=== PATIENT | male | born 1980 | race Caucasian/White ===

== ENCOUNTER → 2017-03-18 | Outpatient (CLI) | payer BC | LOC: MHCPAIN 12:44 | DX: G89.29 Other chronic pain (principal); M47.27 Other spondylosis with radiculopathy, lumbosacral region; M53.3 Sacrococcygeal disorders, not elsewhere classified; M96.1 Postlaminectomy syndrome, not elsewhere classified; F17.200 Nicotine dependence, unspecified, uncomplicated | CPT/HCPCS: G0463 ==

== ENCOUNTER 2017-04-15 13:45 | Outpatient (RCR) | payer BC | END 2017-05-21 10:52 | disposition home or self-care (01) | LOC: WSPT 13:45 | DX: M47.27 Other spondylosis with radiculopathy, lumbosacral region (principal); M96.1 Postlaminectomy syndrome, not elsewhere classified; M53.3 Sacrococcygeal disorders, not elsewhere classified ==

== ENCOUNTER → 2017-10-31 | Outpatient (CLI) | payer BC | LOC: ZCOL.LAB 13:28 | DX: Z22.322 Carrier or suspected carrier of Methicillin resistant Staphylococcus aureus (principal) ==

== ENCOUNTER → 2017-12-30 | Outpatient (CLI) | payer BC | LOC: COL.RAD 11:45 | DX: M99.73 Connective tissue and disc stenosis of intervertebral foramina of lumbar region (principal); M51.27 Other intervertebral disc displacement, lumbosacral region; L92.8 Other granulomatous disorders of the skin and subcutaneous tissue; Z98.890 Other specified postprocedural states | CPT/HCPCS: A9585 ==

== ENCOUNTER 2018-02-11 12:32 | Day surgery (SDC) | payer BC ==
[~2018-02-11] VITALS: Ht 175.3 cm; Wt 76.4 kg
[2018-02-11] MEDS ORDERED: MULTIPLE VITAMI1 TA5 PO (12:48)
[2018-02-11] MEDS ORDERED: OMEGA-3 1000 MG1 CAP PO (12:48)
[2018-02-11] MEDS ORDERED: PERCOCET 325 MG1 TA3 PO (12:48)
[2018-02-11] MEDS ORDERED: TURMERIC500 MG PO (12:49)
[2018-02-11 12:53] VITALS: BP 121/83; PULSE 65; TEMP 97.9
[2018-02-11] MEDS ORDERED: PRILOSEC 20MG20 MG PO (14:07)
[2018-02-11 14:15] VITALS: BP 124/93; PULSE 70; TEMP 97.3
[2018-02-11 14:30] VITALS: BP 122/84; PULSE 62
[2018-02-11 14:45] VITALS: BP 123/83; PULSE 68
== END 2018-02-11 14:55 | disposition home or self-care (01) ==
LOC: SDCO 12:32
DX: K21.0 Gastro-esophageal reflux disease with esophagitis (principal); K29.30 Chronic superficial gastritis without bleeding; F17.210 Nicotine dependence, cigarettes, uncomplicated; K21.9 Gastro-esophageal reflux disease without esophagitis; G89.29 Other chronic pain
CPT/HCPCS: J2704; J7030

== ENCOUNTER → 2018-03-27 | Outpatient (CLI) | payer BC ==
[~2018-03-27] MED LIST: MULTIPLE VITAMI1 TA5 PO; OMEGA-3 1000 MG1 CAP PO; PERCOCET 325 MG1 TA3 PO; PRILOSEC 20MG20 MG PO; TURMERIC500 MG PO
== END ==
LOC: COL.RAD 12:52
DX: K63.89 Other specified diseases of intestine (principal)
CPT/HCPCS: Q9967

== ENCOUNTER 2019-04-29 08:13 | Emergency (ER) | payer BC ==
[~2019-04-29] VITALS: Ht 172.7 cm; Wt 72.7 kg
[2019-04-29 08:40] VITALS: BP 150/73; PULSE 92; TEMP 98.7
[2019-04-29] MEDS ORDERED: LIDODERM 5% PATC1 EA TP (09:38)
[2019-04-29] MEDS ORDERED: FLEXERIL 1010 MG/TAB PO (09:38)
== END 2019-04-29 09:50 | disposition home or self-care (01) ==
LOC: COL.ER 08:13
DX: S29.011A Strain of muscle and tendon of front wall of thorax, initial encounter (principal); S20.221A Contusion of right back wall of thorax, initial encounter; F17.210 Nicotine dependence, cigarettes, uncomplicated; W10.9XXA Fall (on) (from) unspecified stairs and steps, initial encounter
CPT/HCPCS: J1885

== ENCOUNTER 2019-08-16 14:46 | Emergency (ER) | payer BC ==
[~2019-08-16] VITALS: Ht 175.3 cm; Wt 72.7 kg
[~2019-08-16 14:46] MED LIST changes: +FLEXERIL 1010 MG/TAB PO; +LIDODERM 5% PATC1 EA TP
[2019-08-16 14:48] VITALS: TEMP 98.6
[2019-08-16 15:32] LABS: BASO % 0.5 % (0.0-2.0); EOS % 0.9 % (0-4.0); GRAN # 2.8 (1.4-6.5); GRAN % 63.8 % (42.2-75.2); HEMATOCRIT 44.2 % (42.0-52.0); HEMOGLOBIN 15.1 g/dl (13.5-18.0); LYMPH # 1.1 (1.2-3.4); LYMPH % 24.7 % (20.0-51.0); MEAN CELL VOLUME 91 fl (80.0-100.0); MEAN CORPUSCULAR HEMOGLOBIN 31 pg (27.0-31.0); MEAN CORPUSCULAR HGB CONC 34 g/dl (33.0-37.0); MONO # 0.4 (0.1-0.6); MONO % 9.6 % (1.7-9.3); PLATELET COUNT 217 K/mm3 (130-400); RED BLOOD COUNT 4.85 M/mm3 (4.20-5.60); REDCELL DISTRIBUTION WIDTH-CV 12.7 % (11.5-14.5)
[2019-08-16 15:43] LABS: ALBUMIN 4.6 gm/dL (3.5-5.0); BILIRUBIN,TOTAL 0.6 mg/dL (0.0-1.0); CALCIUM 9.3 mg/dL (8.4-10.2); CREATININE, serum 0.86 (0.66-1.25); POTASSIUM 3.9 mmol/L (3.4-5.0); TOTAL PROTEIN 7.9 gm/dL (6.4-8.2)
[2019-08-16] MEDS ORDERED: NORCO 325 MG-51 TAB PO (16:38)
[2019-08-16] MEDS ORDERED: MEDROL 4MG DOSPA4 MG PO (16:38)
[2019-08-16] MEDS ORDERED: SKELAXIN 800MG800 MG PO (16:38)
[2019-08-16 16:40] VITALS: BP 124/81; PULSE 61
== END 2019-08-16 16:55 | disposition home or self-care (01) ==
LOC: COL.ER 14:46
PROVIDERS: Physician Assistant
DX: R07.81 Pleurodynia (principal); R05 Cough; R10.13 Epigastric pain; K21.9 Gastro-esophageal reflux disease without esophagitis; F17.210 Nicotine dependence, cigarettes, uncomplicated
CPT/HCPCS: J2270; J7030

== ENCOUNTER 2019-12-15 11:19 | Emergency (ER) | payer BC, MEDICAID ==
[~2019-12-15] VITALS: Ht 175.3 cm; Wt 77.3 kg
[~2019-12-15 11:19] MED LIST changes: +MEDROL 4MG DOSPA4 MG PO; +NORCO 325 MG-51 TAB PO; +SKELAXIN 800MG800 MG PO
[2019-12-15 11:29] VITALS: TEMP 99.3
[2019-12-15 12:46] LABS: BASO % 0.6 % (0.0-2.0); GRAN # 1.4 (1.4-6.5); GRAN % 45.9 % (42.2-75.2); HEMATOCRIT 43.9 % (42.0-52.0); HEMOGLOBIN 15.4 g/dl (13.5-18.0); LYMPH # 1.3 (1.2-3.4); LYMPH % 40.6 % (20.0-51.0); MEAN CELL VOLUME 90 fl (80.0-100.0); MEAN CORPUSCULAR HEMOGLOBIN 32 pg (27.0-31.0); MEAN CORPUSCULAR HGB CONC 35 g/dl (33.0-37.0); MEAN PLATELET VOLUME 10.1 fl (7.4-10.4); MONO # 0.4 (0.1-0.6); MONO % 11.6 % (1.7-9.3); PLATELET COUNT 224 K/mm3 (130-400); RED BLOOD COUNT 4.89 M/mm3 (4.20-5.60); REDCELL DISTRIBUTION WIDTH-CV 12.2 % (11.5-14.5)
[2019-12-15 12:53] LABS: PROTHROMBIN TIME 11.1 SECONDS (9.7-12.8)
[2019-12-15 13:01] LABS: ALANINE AMINOTRANSFERASE 44 U/L (4-49); ALBUMIN 5.1 gm/dL (3.5-5.0); ALKALINE PHOSPHATASE 75 U/L (50-136); ANION GAP 15 mmol/L (7-16); AST,SGOT 53 U/L (15-37); BLOOD UREA NITROGEN 7 mg/dL (9-20); CALCIUM 9.9 mg/dL (8.4-10.2); CARBON DIOXIDE 22 mmol/L (22-30); CHLORIDE 101 mmol/L (98-107); CREATININE, serum 0.84 (0.66-1.25); GLUCOSE 86 mg/dL (74-106); LIPASE 68 U/L (23-300); SODIUM 137 mmol/L (137-145); TOTAL PROTEIN 8.6 gm/dL (6.4-8.2)
[2019-12-15 13:10] LABS: TROPONIN-I < 0.012 ng/mL (0.000-0.035)
[2019-12-15 13:11] LABS: C-REACTIVE PROTEIN < 0.5 mg/dL (0.0-0.9)
[2019-12-15 15:25] VITALS: BP 124/87; PULSE 81
== END 2019-12-15 15:25 | disposition home or self-care (01) ==
LOC: COL.ER 11:19
PROVIDERS: Emergency Medicine
DX: F15.90 Other stimulant use, unspecified, uncomplicated (principal); Z20.828 Contact with and (suspected) exposure to other viral communicable diseases
CPT/HCPCS: J1630; J2060; J7030

== ENCOUNTER 2020-03-16 15:36 | Emergency (ER) | payer BC, MEDICAID ==
[~2020-03-16] VITALS: Ht 175.3 cm; Wt 77.3 kg
[2020-03-16 15:43] VITALS: BP 139/92; PULSE 97; TEMP 98.9
== END 2020-03-16 17:16 | disposition left against medical advice (07) ==
LOC: COL.ER 15:36
DX: B34.9 Viral infection, unspecified (principal); F17.200 Nicotine dependence, unspecified, uncomplicated; Z20.828 Contact with and (suspected) exposure to other viral communicable diseases

== ENCOUNTER → 2020-04-11 | Outpatient (CLI) | payer BC, MEDICAID | LOC: COL.RAD 11:51 | DX: M51.27 Other intervertebral disc displacement, lumbosacral region (principal); M48.07 Spinal stenosis, lumbosacral region; Z98.890 Other specified postprocedural states ==

== ENCOUNTER → 2020-06-07 | Outpatient (CLI) | payer BC ==
[~2020-06-07] MED LIST changes: +LIBRIUM 25M25 MG/CAP PO
== END ==
LOC: COL.RAD 10:26
DX: M54.42 Lumbago with sciatica, left side (principal)

== ENCOUNTER → 2020-06-29 | Outpatient (CLI) | payer BC, MEDICAID | LOC: MHCPAIN 09:54 | DX: M47.816 Spondylosis without myelopathy or radiculopathy, lumbar region (principal); M53.3 Sacrococcygeal disorders, not elsewhere classified; M54.5 Low back pain; M96.1 Postlaminectomy syndrome, not elsewhere classified; G89.29 Other chronic pain | CPT/HCPCS: G0463 ==

== ENCOUNTER → 2020-09-16 | Outpatient (CLI) | payer BC | LOC: COL.PUL 08-08 13:00 | DX: R06.02 Shortness of breath (principal) | CPT/HCPCS: J7674 ==

== ENCOUNTER 2021-02-03 02:40 | Emergency (ER) | payer MEDICAID ==
[~2021-02-03] VITALS: Ht 172.7 cm; Wt 77.3 kg
[~2021-02-03 02:40] MED LIST changes: -LIBRIUM 25M25 MG/CAP PO
[2021-02-03 03:42] LABS: BASO % 0.8 % (0.0-2.0); EOS # 0.2 K/mm3 (0.0-0.7); EOS % 2.9 % (0-4.0); GRAN # 2.7 K/mm3 (1.4-6.5); GRAN % 51.2 % (42.2-75.2); HEMATOCRIT 45.6 % (42.0-52.0); HEMOGLOBIN 15.8 g/dl (13.5-18.0); LYMPH # 1.9 K/mm3 (1.2-3.4); LYMPH % 35.8 % (20.0-51.0); MEAN CELL VOLUME 90 fl (80.0-100.0); MEAN CORPUSCULAR HEMOGLOBIN 31 pg (27.0-31.0); MEAN CORPUSCULAR HGB CONC 35 g/dl (33.0-37.0); MEAN PLATELET VOLUME 9.4 fl (7.4-10.4); MONO # 0.5 K/mm3 (0.1-0.6); MONO % 9.1 % (1.7-9.3); PLATELET COUNT 242 K/mm3 (130-400); RED BLOOD COUNT 5.05 M/mm3 (4.20-5.60)
[2021-02-03 04:07] LABS: ALANINE AMINOTRANSFERASE 41 U/L (0-55); ALBUMIN 4.3 gm/dL (3.5-5.0); ALCOHOL(ethanol),MEDICAL 90 mg/dL (0-10); ALKALINE PHOSPHATASE 63 U/L (40-150); ANION GAP 14 mmol/L (7-16); AST,SGOT 24 U/L (5-34); BILIRUBIN,TOTAL 0.8 mg/dL (0.2-1.2); BLOOD UREA NITROGEN 8 mg/dL (9-21); CALCIUM 9.1 mg/dL (8.4-10.2); CARBON DIOXIDE 22 mmol/L (22-29); CHLORIDE 107 mmol/L (98-107); CREATININE, serum 0.87 mg/dL (0.72-1.25); GLUCOSE 104 mg/dL (70-99); SODIUM 143 mmol/L (136-145); TOTAL PROTEIN 7.6 gm/dL (6.2-8.1)
[2021-02-03 04:10] LABS: ACETAMINOPHEN < 1.0 ug/mL (10-30); SALICYLATE < 5.0 mg/dL (15.0-30.0)
[2021-02-03 04:50] LABS: COLLECTION METHOD CLEAN CATCH
[2021-02-03 05:01] LABS: MUCOUS Present /lpf; PH 5 (5-8); SQUAMOUS EPITHELIAL None Seen /hpf; URINE APPEARANCE Clear; URINE BACTERIA None Seen /hpf; URINE BILIRUBIN Negative (NEGATIVE); URINE BLOOD Negative (NEGATIVE); URINE COLOR Yellow; URINE GLUCOSE Negative (NEGATIVE); URINE KETONE Negative (NEGATIVE); URINE LEUKOCYTE ESTERASE Negative (NEGATIVE); URINE NITRATE Negative (NEGATIVE); URINE PROTEIN(semi-quant) Negative (NEGATIVE); URINE RBC None Seen /hpf; URINE UROBILINOGEN Negative (NEGATIVE)
[2021-02-03 05:08] LABS: TRICYCLIC ANTIDEPRESS URINE NEGATIVE
[2021-02-03] MEDS ORDERED: LIBRIUM 25M25 MG/CAP PO (08:55)
[2021-02-03 09:07] VITALS: BP 120/68; PULSE 103; TEMP 98.3
== END 2021-02-03 09:07 | disposition home or self-care (01) ==
LOC: COL.ER 02:40
PROVIDERS: Emergency Medicine
DX: F32.A Depression, unspecified (principal); R45.851 Suicidal ideations; F10.10 Alcohol abuse, uncomplicated